=== PATIENT | male | born 1990 | race African-American/Black ===

== ENCOUNTER 2018-04-06 13:48 | Emergency (ER) | payer BC ==
[2018-04-06 14:04] VITALS: BP 127/76; PULSE 82; TEMP 98.6; BMI 19.8
--- NOTE | 2018-04-06 15:14 | PDOC ---
Suture Removal/Wound Check HPI - History of Present Illness Chief Complaint: Suture/Staple Removal(Here) Stated Complaint: SUTURE REMOVAL Time Seen by Provider: 04/06/18 14:14 History Source: Yes: Patient Exam Limitations: Yes: No Limitations Treated at: [facility] ED - Previous ED Treatment Type of procedure performed on last visit: Yes: Laceration Repair Tetanus Immunization: Yes: Up to Date - Onset of Previous Treatment Comment:: 04/06/18 17:05 6 vertical mattress sutures intact with well approximated heel to the volar aspect of right forearm. Full range of motion of fingers, no hematoma, no exudate or cellulitis noted. well approximated wound. Steri-Strips applied for added reenforcement Past History - Travel Traveled outside of the country in the last 30 days: No Close contact w/someone who was outside of country & ill: No - Past Medical History Allergies/Adverse Reactions: Allergies Allergy/AdvReac Type Severity Reaction Status Date / Time No Known Allergies Allergy Verified 04/06/18 13:57 Home Medications: Ambulatory Orders NK [No Known Home Medication] 04/06/18 - Suicide/Smoking/Psychosocial Hx Smoking History: Current every day smoker Number of Cigarettes Smoked Daily: 20 Information on smoking cessation initiated: No Suture Removal/Wound Check PE - Physical Exam Laceration/Wound Check Symptoms: reports: None Current Severity Level: None Maximum Severity Level: None Pain Localization: None *Review of Systems - Review of Systems Able to Perform ROS?: Yes Constitutional: Yes: See HPI. No: Symptoms Reported HEENTM: No: Symptoms Reported Musculoskeletal: Yes: See HPI. No: Symptoms Reported All Other Systems: Reviewed and Negative *Physical Exam - Vital Signs Last Vital Signs Temp Pulse Resp BP Pulse Ox 98.6 F 82 18 127/76 99 04/06/18 13:57 04/06/18 13:57 04/06/18 13:57 04/06/18 13:57 04/06/18 13:57 - Physical Exam General Appearance: Yes: Nourished HEENT: positive: TMs Normal Neck: positive: Supple. negative: Tender Respiratory/Chest: positive: Lungs Clear Extremity: positive: Normal Capillary Refill, Normal Inspection, Normal Range of Motion Integumentary: negative: Normal Color Neurologic: positive: guide tour II-XII NML intact, Fully Oriented, Alert, Normal Mood/ Affect, Normal Response, Motor Strength 5/5 Moderate Sedation - Procedure Monitoring Vital Signs: Procedure Monitoring Vital Signs Temperature 98.6 F 04/06/18 13:57 Pulse Rate 82 04/06/18 13:57 Respiratory Rate 18 04/06/18 13:57 Blood Pressure 127/76 04/06/18 13:57 O2 Sat by Pulse Oximetry (%) 99 04/06/18 13:57 *DC/Admit/Observation/Transfer Diagnosis at time of Disposition: Visit for suture removal - Discharge Dispostion Disposition: HOME Condition at time of disposition: Stable Decision to Admit order: No - Referrals - Patient Instructions Printed Discharge Instructions: DI for Suture Removal Additional Instructions: Rest, avoid strenuous activity or exercise until scabbing is completely resolved May use bacitracin ointment until scabbing is gone After may use vitamin E oil, poke hole in vitamin E capsule and use oil from the capsule on wound- may help resolve some of the discoloration of the scar Keep wound out of the sun for at least one year to avoid darkening of scar tissue - Post Discharge Activity Forms/Work/School Notes: Back to Work
== END 2018-04-06 15:11 | disposition home or self-care (01) ==
LOC: JERFT 13:48
DX: Z48.02 Encounter for removal of sutures (principal)
CPT/HCPCS: 99281-25